=== PATIENT | female | born 1990 | race Caucasian/White ===

== ENCOUNTER 2019-02-18 15:26 | Emergency (ER) | payer OTHER ==
[~2019-02-18] VITALS: Ht 170.2 cm; Wt 86.2 kg
[2019-02-18 15:40] VITALS: BP 122/76
--- NOTE | 2019-02-18 15:48 | NUR ---
PT SENT TO LOBBY. NO BEDS AVAILABLE AT THIS TIME.
--- NOTE | 2019-02-18 16:35 | NUR ---
PT AMBULATED TO ER BED 08
--- NOTE | 2019-02-18 16:54 | NUR ---
PATIENT PRESENTED TO ED C/O MID-ABDOMINAL PAIN 01/10 THAT RADIATES TO HER LEFT SIDE FOR 1 WEEK NOW. STATED TAKING IBUPROFEN AT HOME BUT DID NOT WORK. AAOX4, RESPIRATIONS EVEN AND UNLABORED, ABDOMEN SOFT TO TOUCH, BOWEL SOUNDS PRESENT X4, NO C/O N/V/D, C/O CONSTIPATION, WITH LBM THIS MORNING. BED PLACED IN LOWEST POSITION, WILL CONTINUE TO MONITOR CLOSELY, ED PROVIDER MADE AWARE.
--- NOTE | 2019-02-18 18:04 | NUR ---
LAB AT BEDSIDE
[2019-02-18 18:19] LABS: BASOPHILS % (AUTO) 0.5 % (0.0-2.0); EOSINOPHILS # (AUTO) 0.2 K/uL (0-0.4); EOSINOPHILS % (AUTO) 1.6 % (0.0-4.0); HEMATOCRIT 40.9 % (36-48); HEMOGLOBIN 13.4 g/dL (12.0-16.0); LYMPHOCYTES # (AUTO) 1.9 K/uL (2.5-16.5); LYMPHOCYTES % (AUTO) 19.7 % (20.5-51.1); MEAN CORPUSCULAR HEMOGLOBIN 29 pg (27-31); MEAN CORPUSCULAR HGB CONC 33 g/dL (33-37); MEAN CORPUSCULAR VOLUME 88.8 fL (80-94); MONOCYTES # (AUTO) 0.8 K/uL (0.8-1.0); MONOCYTES % (AUTO) 8.3 % (1.7-9.3); NEUTROPHILS # (AUTO) 6.7 K/uL (1.8-7.7); NEUTROPHILS % (AUTO) 69.9 % (42.2-75.2); PLATELET COUNT (AUTO) 250 K/uL (140-450); RED CELL DISTRIBUTION WIDTH 15.4 % (11.6-13.7); WHITE BLOOD COUNT (AUTO) 9.6 K/uL (4.8-10.8)
[2019-02-18 18:39] LABS: ALBUMIN 3.9 g/dL (3.4-5.0); ANION GAP 12.7 (8-16); CARBON DIOXIDE 27.1 mmol/L (21-32); CREATININE 0.8 mg/dL (0.6-1.3); POTASSIUM 3.8 mmol/L (3.5-5.1); TOTAL BILIRUBIN 0.3 mg/dL (0.0-1.0)
[2019-02-18 19:18] LABS: APPEARANCE,URINE CLEAR (CLEAR); BILIRUBIN,URINE NEGATIVE (NEGATIVE); BLOOD, URINE NEGATIVE (NEGATIVE); COLOR,URINE YELLOW (YELLOW); LEUKOCYTE ESTERASE ,URINE NEGATIVE (NEGATIVE); NITRITE, URINE NEGATIVE (NEGATIVE); PH,URINE 7.5 (5.0-9.0); UGLUCOSE NEGATIVE (NEGATIVE)
[2019-02-18 19:30] VITALS: BP 135/69
--- NOTE | 2019-02-18 19:30 | NUR ---
Patient discharged with v/s stable. Written and verbal after care instructions given and explained. Patient alert, oriented and verbalized understanding of instructions. Ambulatory with steady gait. All questions addressed prior to discharge. ID band removed. Patient advised to follow up with PMD.Opportunity to ask questions provided and answered.
== END 2019-02-18 19:30 | disposition home or self-care (01) ==
LOC: MED 15:26
DX: R10.13 Epigastric pain (principal); R07.1 Chest pain on breathing
CPT/HCPCS: 36415; 71045; 80053; 81003; 81025; 83690; 84484; 85025; 93005; 99284

== ENCOUNTER 2019-02-25 07:34 | Emergency (ER) | payer OTHER ==
[~2019-02-25] VITALS: Ht 170.2 cm; Wt 85.3 kg
[2019-02-25 07:37] VITALS: BP 117/66
--- NOTE | 2019-02-25 07:42 | NUR ---
PATIENT AMBULATED TO ER BED 6.
--- NOTE | 2019-02-25 07:55 | NUR ---
PT C/O LOWER RIGHT SIDE PAIN 10/10 & SHARP X 2 WEEKS. PT REPORTS MORE PAIN ON INSPIRATION, AND URINARY HESITANCY. PAIN GETS WORSE WITH LYING ON THE RT SIDE, MOPRE AT NIGHT.DENIES N/V/D/RECENT INJURY, DENIES DYSURIA.DENIES ANTY FEVER, CHILLS AT THIS TIME. PT REPORTS TAKING IBUPROFEN AT HOME WITH MINIMAL RELIEF. ER MD TO SEE THE PATIENT. HX: NONE RX: NONE
--- NOTE | 2019-02-25 08:08 | NUR ---
DR. LING EVALUATING PATIENT.
[2019-02-25 08:25] LABS: APPEARANCE,URINE SL CLOUDY (CLEAR); BILIRUBIN,URINE NEGATIVE (NEGATIVE); BLOOD, URINE 1+ (NEGATIVE); COLOR,URINE YELLOW (YELLOW); LEUKOCYTE ESTERASE ,URINE 3+ (NEGATIVE); NITRITE, URINE NEGATIVE (NEGATIVE); UGLUCOSE NEGATIVE (NEGATIVE)
[2019-02-25 08:40] LABS: BASOPHILS % (AUTO) 0.2 % (0.0-2.0); EOSINOPHILS % (AUTO) 0.1 % (0.0-4.0); HEMOGLOBIN 12.3 g/dL (12.0-16.0); LYMPHOCYTES # (AUTO) 0.8 K/uL (2.5-16.5); LYMPHOCYTES % (AUTO) 4.7 % (20.5-51.1); MEAN CORPUSCULAR HEMOGLOBIN 29 pg (27-31); MEAN CORPUSCULAR HGB CONC 32 g/dL (33-37); MEAN CORPUSCULAR VOLUME 88.6 fL (80-94); MONOCYTES # (AUTO) 1.7 K/uL (0.8-1.0); MONOCYTES % (AUTO) 10.9 % (1.7-9.3); NEUTROPHILS # (AUTO) 13.5 K/uL (1.8-7.7); NEUTROPHILS % (AUTO) 84.1 % (42.2-75.2); PLATELET COUNT (AUTO) 211 K/uL (140-450); RED BLOOD CELL COUNT(AUTO) 4.29 MIL/uL (4.20-5.40); RED CELL DISTRIBUTION WIDTH 15.4 % (11.6-13.7)
[2019-02-25 08:47] LABS: RBC,URINE 0-5 /HPF (0-5); WBC,URINE 60-80 /HPF (0-5)
[2019-02-25 08:55] LABS: ANION GAP 12.3 (8-16); CREATININE 0.8 mg/dL (0.6-1.3); POTASSIUM 3.3 mmol/L (3.5-5.1)
[2019-02-25 09:02] LABS: ALBUMIN 3.2 g/dL (3.4-5.0); TOTAL BILIRUBIN 0.5 mg/dL (0.0-1.0)
[2019-02-25] MEDS ORDERED: NACL 0.9% 1,000 ML IV ONE (09:45)
--- NOTE | 2019-02-25 09:59 | NUR ---
pt being taken to ct via ahsan
--- NOTE | 2019-02-25 10:13 | NUR ---
PT BACK FROM CT .
--- NOTE | 2019-02-25 11:08 | NUR ---
ADMINISTERED ABX TO PT ORDERED. GAVE BLANKET TO PT. RESTING COMFORTABLY IN HER BED. WILL CONTINUE TO MONITOR PT.
[2019-02-25] MEDS ORDERED: cefTRIAXone 1,000 MG VIAL ONE (11:09)
--- NOTE | 2019-02-25 11:27 | NUR ---
Patient discharged with v/s stable. Written and verbal after care instructions given and explained. Patient alert, oriented and verbalized understanding of instructions. Ambulatory with steady gait. All questions addressed prior to discharge. ID band removed. Patient advised to follow up with PMD. Rx of ZOFRAN, CEPHALEXIN AND NORCO given. Patient educated on indication of medication including possible reaction and side effects. Opportunity to ask questions provided and answered.
[2019-02-25 11:28] VITALS: BP 107/56
== END 2019-02-25 11:27 | disposition home or self-care (01) ==
LOC: MED 07:34
DX: K80.20 Calculus of gallbladder without cholecystitis without obstruction (principal); N12 Tubulo-interstitial nephritis, not specified as acute or chronic
CPT/HCPCS: 36415; 74178; 76705; 80053; 81001; 81025; 83690; 85025; 87086; 87186; 96365; 99284; J0696; J7030; Q0092; Q9967

== ENCOUNTER 2020-01-09 18:48 | Emergency (ER) | payer OTHER ==
[~2020-01-09] VITALS: Ht 170.2 cm; Wt 86.2 kg
[2020-01-09 18:57] VITALS: BP 110/64
--- NOTE | 2020-01-09 19:05 | NUR ---
PT TAKEN TO BED 4
--- NOTE | 2020-01-09 19:09 | NUR ---
FRANKLIN BRADY WITH PT
[2020-01-09 19:20] VITALS: BP 110/64
--- NOTE | 2020-01-09 19:20 | NUR ---
Patient assessed, treated, and discharged by ERMD. Patient discharged with v/s stable. Written and verbal after care instructions given and explained. Patient alert, oriented and verbalized understanding of instructions. Ambulatory with steady gait. All questions addressed prior to discharge. ID band removed. Patient advised to follow up with PMD. Rx of Zyrtec-D given. Patient educated on indication of medication including possible reaction and side effects. Opportunity to ask questions provided and answered.
== END 2020-01-09 19:20 | disposition home or self-care (01) ==
LOC: MED 18:48
DX: R09.81 Nasal congestion (principal); T78.40XA Allergy, unspecified, initial encounter; X58.XXXA Exposure to other specified factors, initial encounter; R06.7 Sneezing; F17.200 Nicotine dependence, unspecified, uncomplicated; F12.10 Cannabis abuse, uncomplicated; Z90.49 Acquired absence of other specified parts of digestive tract
CPT/HCPCS: 99282

== ENCOUNTER 2020-04-06 11:46 | Emergency (ER) | payer OTHER ==
[~2020-04-06] VITALS: Ht 170.2 cm; Wt 88.5 kg
--- NOTE | 2020-04-06 11:51 | NUR ---
Patient ambulated to bed 4. RN evaluating the patient at bedside.
[2020-04-06 11:54] VITALS: BP 142/92
--- NOTE | 2020-04-06 11:56 | NUR ---
c/o indigestion/heartburn x2 days. no relief with tums/pepto. Pt aox 4, afibrile , ambulatory with steady gait, pink palpebral conjunctiva , anicteric sclera , sce , flat soft abdomen. hx: none
[2020-04-06] MEDS ORDERED: DICYCLOMINE HCL LIQUID 20 MG, ALUMINUM HYD/MAG/SIMETHICONE 30 ML, LIDOCAINE VISCOUS 2% ... PO ONE ×3 (12:00)
--- NOTE | 2020-04-06 12:00 | NUR ---
Dr. Martínez is evaluating the patient at bedside.
[2020-04-06] MEDS ORDERED: ONDANSETRON 4 MG ODT PO ONE (12:05)
[2020-04-06] MEDS ORDERED: LIDOCAINE VISCOUS 2% 20 ML UDC ONE (12:06)
[2020-04-06] MEDS ORDERED: DICYCLOMINE HCL LIQUID 10 MG/5 ML UDC ONE (12:06)
[2020-04-06] MEDS ORDERED: ALUMINUM HYD/MAG/SIMETHICONE 30 ML UDC ONE (12:06)
[2020-04-06 12:25] VITALS: BP 140/88
--- NOTE | 2020-04-06 12:25 | NUR ---
Patient discharged with v/s stable. Written and verbal after care instructions given and explained regarding GERD. Patient alert, oriented and verbalized understanding of instructions. Ambulatory with steady gait. All questions addressed prior to discharge. ID band removed. Patient advised to follow up with PMD. Rx of prilosec and zofran given. Patient educated on indication of medication including possible reaction and side effects. Opportunity to ask questions provided and answered.
== END 2020-04-06 12:25 | disposition home or self-care (01) ==
LOC: MED 11:46
DX: R10.13 Epigastric pain (principal); R11.0 Nausea; Z90.49 Acquired absence of other specified parts of digestive tract
CPT/HCPCS: 81002; 81025; 99283; Q0162

== ENCOUNTER 2020-07-29 12:45 | Emergency (ER) | payer OTHER ==
[~2020-07-29] VITALS: Ht 170.2 cm; Wt 81.6 kg
[2020-07-29 14:03] VITALS: BP 111/72
--- NOTE | 2020-07-29 14:05 | NUR ---
triaged and waiting in tent.
--- NOTE | 2020-07-29 14:06 | NUR ---
PCR swab collected.
--- NOTE | 2020-07-29 14:33 | NUR ---
pt discharged by FRANKLIN Trujillo with VSS.
== END 2020-07-29 14:33 | disposition home or self-care (01) ==
LOC: MED 12:45
DX: J02.9 Acute pharyngitis, unspecified (principal); Z20.828 Contact with and (suspected) exposure to other viral communicable diseases; Z90.49 Acquired absence of other specified parts of digestive tract
CPT/HCPCS: 99283; U0003

== ENCOUNTER 2021-02-05 05:05 | Emergency (ER) | payer OTHER ==
[~2021-02-05] VITALS: Ht 167.6 cm; Wt 66.2 kg
[2021-02-05 05:11] VITALS: BP 118/78
--- NOTE | 2021-02-05 05:16 | NUR ---
PT TAKEN TO BED 11
--- NOTE | 2021-02-05 05:18 | NUR ---
Dr. Martínez examining patient.
--- NOTE | 2021-02-05 05:18 | NUR ---
30 YO F BIB SELF WITH C/C OF SORE THROAT AND INC PHLEM X1 WK. DENIES SOB, FEVER, AND COUGH. PT STATED SHE ALSO HAS A THROBBING WOOD 03/12. PT STATED SHE TOOK TYLENOL WITH LITTLE RELIEF. PT IS SITTING IN CHAIR. ALL NEEDS MET AT THIS TIME. HX AND RX DENIES NKA
[2021-02-05] MEDS ORDERED: KETOROLAC 60 MG/2 ML VIAL IM ONE (05:25)
[2021-02-05] MEDS ORDERED: IBUP-2213 PO (05:31)
[2021-02-05] MEDS ORDERED: ONDA8TAB87 PO (05:31)
[2021-02-05] MEDS ORDERED: OMEP40EC24 PO (05:34)
[2021-02-05 05:40] VITALS: BP 118/78
--- NOTE | 2021-02-05 05:40 | NUR ---
Patient discharged with v/s stable. Written and verbal after care instructions given and explained. Patient alert, oriented and verbalized understanding of instructions. Ambulatory with steady gait. All questions addressed prior to discharge. ID band removed. Patient advised to follow up with PMD. Rx of IBUPROFEN, PRILOSEC, ZOFRAN given. Patient educated on indication of medication including possible reaction and side effects. Opportunity to ask questions provided and answered.
== END 2021-02-05 05:40 | disposition home or self-care (01) ==
LOC: MED 05:05
DX: R51.9 Headache, unspecified (principal); J02.9 Acute pharyngitis, unspecified; M79.10 Myalgia, unspecified site; Z90.49 Acquired absence of other specified parts of digestive tract
CPT/HCPCS: 81002; 81025; 96372; 99283; J1885